=== PATIENT | female | born 1945 | race American Indian/Alaskan Native ===

== ENCOUNTER 2020-04-14 16:41 | Observation (INO) | payer MEDICARE ==
--- NOTE | 2020-04-14 17:16 | Emergency Department Report ---
Blank Doc - Documentation Documentation: 74-year-old female that presents with chest pain and SOB. This initial assessment/diagnostic orders/clinical plan/treatment(s) is/are subject to change based on patient's health status, clinical progression and re- assessment by fellow clinical providers in the ED. Further treatment and workup at subsequent clinical providers discretion. Patient/guardians urged not to elope from the ED as their condition may be serious if not clinically assessed and managed. Initial orders include: 1- Patient sent to MAIN ED for further evaluation and treatment 2- cardiac workup
--- NOTE | 2020-04-14 17:50 | XRay Report ---
CHEST PA AND LATERAL VIEWS INDICATION: Chest Pain. COMPARISON: None. FINDINGS: Support devices: None. Heart: Within normal limits. Lungs/Pleura: No acute pulmonary or pleural findings. IMPRESSION: 1. No acute findings. Signer Name: Kevin Horowitz MD Signed: 04/14/2020 5:46 PM Workstation Name: [id number]
[2020-04-14 18:09] LABS: Basophils % (Auto) 0.6 % (0.0-1.8); Eosinophils # (Auto) 0.2 K/mm3 (0.0-0.4); Eosinophils % (Auto) 2.6 % (0.0-4.3); Hematocrit 31.9 % (30.3-42.9); Hemoglobin 11.2 gm/dl (10.1-14.3); Lymphocytes # (Auto) 3.7 K/mm3 (1.2-5.4); Lymphocytes % (Auto) 47.7 % (13.4-35.0); Mean Corpuscular HGB Conc 35 % (30-34); Mean Corpuscular Volume 88 fl (79-97); Monocytes # (Auto) 0.5 K/mm3 (0.0-0.8); Monocytes % (Auto) 6.6 % (0.0-7.3); Platelet Count 239 K/mm3 (140-440); Red Blood Count 3.61 M/mm3 (3.65-5.03); Red Cell Distribution Width 14.7 % (13.2-15.2)
[2020-04-14 18:17] LABS: INR 0.94 (0.87-1.13)
[2020-04-14 18:18] LABS: Alanine Aminotransferase 14 units/L (7-56); Albumin 4.1 g/dL (3.9-5); BUN/Creatinine Ratio 9; Blood Urea Nitrogen 19 mg/dL (7-17); Calcium 9.1 mg/dL (8.4-10.2); Hemolysis Index 5; Partial Thromboplastin Time 27.9 Sec. (24.2-36.6)
--- NOTE | 2020-04-14 22:34 | Emergency Department Report ---
ED Chest Pain HPI - General Chief Complaint: Chest Pain Stated Complaint: CHEST PAINS PUI?: No Time Seen by Provider: 04/14/20 17:15 Source: patient Mode of arrival: Ambulatory Limitations: No Limitations - History of Present Illness Initial Comments: Patient is a 74-year-old female that presents emergency room with complaints of bilateral chest pain. Patient states that her chest pain started a week ago. Patient states she was seen by her primary care 1 week ago and was given a steroid pack and a Z-Hever. Patient states her symptoms improved with the steroids and Z-Hever.. Patient states that the symptoms returned yesterday. Patient also complains of shortness of breath and cough. Patient states the cough is improving. Patient states the chest pain and shortness of breath are worsening. Patient denies fever and chills. Patient denies diarrhea. Patient denies nausea vomiting. Patient denies loss of smell. Patient states her cough is a dry cough. .Patient states she is visiting from [place]. 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 Patient has history of diabetes and hypertension. Patient is compliant with her medications. Patient denies recent travel. Patient denies recent international travel. Mamie ent denies exposure to the novel coronavirus. Patient denies sick contacts. Patient denies fever and chills. Patient denies loss of smell. Patient denies diarrhea. Patient denies coming in contact with anybody with symptoms of the novel coronavirus. MD Complaint: chest pain -: Sudden, week(s) Onset: during rest Pain Location: left chest, right chest Pain Radiation: none Severity: moderate Severity scale (0 -10): 6 Quality: sharp Consistency: intermittent Improves With: rest Worsens With: exertion, inspiration, movement re: dyspnea. denies: nausea, vomting, diaphoresis, sense of impending doom Other Symptoms: cough. denies: fever, syncope, rash, acid taste in mouth, leg swelling, palpitations, burping Treatments Prior to Arrival: other Aspirin use within the Past 7 Days: (1) Yes - Related Data On Oral Contraceptives: No Home Medications Medication Instructions Recorded Confirmed Last Taken Doxazosin Mesylate [Cardura] 2 mg PO DAILY 04/15/20 04/15/20 Unknown Dulaglutide [Trulicity] SQ 04/15/20 Unknown Flecainide Acetate 50 mg PO BID 04/15/20 04/15/20 Unknown Metoprolol [Lopressor] 100 mg PO BID 04/15/20 04/15/20 Unknown NIFEdipine [Nifedipine ER] 60 mg PO QDAY 04/15/20 04/15/20 Unknown Nitroglycerin [Nitrostat] 0.4 mg SL 04/15/20 Unknown Omeprazole 40 mg PO 04/15/20 Unknown Ondansetron [Zuplenz] 8 mg PO 04/15/20 Unknown Rosuvastatin Calcium [Crestor] 10 mg PO QDAY 04/15/20 04/15/20 Unknown Allergies Allergy/AdvReac Type Severity Reaction Status Date / Time No Known Allergies Allergy Verified 04/14/20 23:01 Heart Score - HEART Score History: Moderately suspicious EKG: Non-specific Age: > 65 Risk factors: > 3 risk factors or hx of atherosclerotic disease Troponin: < normal limit HEART Score: 6 ED Review of Systems ROS: Stated complaint: CHEST PAINS Other details as noted in HPI Constitutional: denies: chills, fever Eyes: denies: eye pain, eye discharge, vision change ENT: denies: ear pain, throat pain Respiratory: cough, shortness of breath. denies: wheezing Cardiovascular: chest pain. denies: palpitations Endocrine: no symptoms reported Gastrointestinal: denies: abdominal pain, nausea, diarrhea Genitourinary: denies: urgency, dysuria, discharge Musculoskeletal: denies: back pain, joint swelling, arthralgia Skin: denies: rash, lesions Neurological: denies: headache, weakness, paresthesias Psychiatric: denies: anxiety, depression Hematological/Lymphatic: denies: easy bleeding, easy bruising ED Past Medical Hx - Past Medical History Previous Medical History?: Yes Hx Hypertension: Yes Hx Diabetes: Yes Hx Renal Disease: Yes (ckd -2) Additional medical history: Coronary artery disease. - Surgical History Past Surgical History?: Yes Additional Surgical History: eye, back - Family History Family history: no significant - Social History Smoking Status: Never Smoker Substance Use Type: None - Medications Home Medications: Home Medications Medication Instructions Recorded Confirmed Last Taken Type Doxazosin Mesylate [Cardura] 2 mg PO DAILY 04/15/20 04/15/20 Unknown History Dulaglutide [Trulicity] SQ 04/15/20 Unknown History Flecainide Acetate 50 mg PO BID 04/15/20 04/15/20 Unknown History Metoprolol [Lopressor] 100 mg PO BID 04/15/20 04/15/20 Unknown History NIFEdipine [Nifedipine ER] 60 mg PO QDAY 04/15/20 04/15/20 Unknown History Nitroglycerin [Nitrostat] 0.4 mg SL 04/15/20 Unknown History Omeprazole 40 mg PO 04/15/20 Unknown History Ondansetron [Zuplenz] 8 mg PO 04/15/20 Unknown History Rosuvastatin Calcium [Crestor] 10 mg PO QDAY 04/15/20 04/15/20 Unknown History ED Physical Exam - General Limitations: No Limitations General appearance: alert, in no apparent distress - Head Head exam: Present: atraumatic, normocephalic - Eye Eye exam: Present: normal appearance - ENT ENT exam: Present: mucous membranes moist - Neck Neck exam: Present: normal inspection - Respiratory Respiratory exam: Present: normal lung sounds bilaterally. Absent: respiratory distress, wheezes, rales - Cardiovascular Cardiovascular Exam: Present: regular rate, normal rhythm. Absent: systolic murmur, diastolic murmur, rubs, gallop - GI/Abdominal GI/Abdominal exam: Present: soft, normal bowel sounds - Extremities Exam Extremities exam: Present: normal inspection - Back Exam Back exam: Present: normal inspection - Neurological Exam Neurological exam: Present: alert, oriented X3 - Psychiatric Psychiatric exam: Present: normal affect, normal mood - Skin Skin exam: Present: warm, dry, intact, normal color. Absent: rash ED Course Vital Signs 04/14/20 04/14/20 04/14/20 17:14 22:32 22:46 Temperature 98.2 F Pulse Rate 65 64 60 Respiratory 20 19 15 Rate Blood Pressure 170/76 174/86 Blood Pressure [left arm] O2 Sat by Pulse 97 99 Oximetry 04/14/20 04/14/20 04/14/20 23:00 23:16 23:30 Temperature Pulse Rate 60 62 61 Respiratory 17 17 20 Rate Blood Pressure 174/86 Blood Pressure [left arm] O2 Sat by Pulse 97 98 99 Oximetry 04/14/20 04/15/20 23:46 00:34 Temperature Pulse Rate 62 62 Respiratory 19 Rate Blood Pressure 196/79 164/68 Blood Pressure 164/88 [left arm] O2 Sat by Pulse 98 Oximetry - Reevaluation(s) Reevaluation #1: I discussed all results with patient. I discussed plan of care with patient. Patient agrees with plan of care and admission. Patient to be admitted to the hospitalist service. 04/14/20 23:14 - Consultations Consultation #1: Hospitalist consulted for admission. Hospitalist to admit patient. Bridge orders placed. 04/14/20 23:14 VALE score - Vale Score Age > 65: (1) Yes Aspirin use within the Past 7 Days: (1) Yes 3 or more CAD Risk Factors: (1) Yes 2 or more Angina events in past 24 hrs: (1) Yes Known CAD with more than 50% Stenosis: (0) No Elevated Cardiac Markers: (0) No ST Deviation Greater than 0.5mm: (0) No VALE Score: 4 ED Medical Decision Making - Lab Data Result diagrams: 04/14/20 17:24 04/14/20 17:24 - EKG Data -: EKG Interpreted by Me EKG shows normal: sinus rhythm, axis, intervals, QRS complexes, ST-T waves Rate: normal - Radiology Data Radiology results: report reviewed interpreted by me: Chest x-ray: No pneumonia, no pneumothorax, no foreign body, no osseous findings, no acute findings CHEST PA AND LATERAL VIEWS INDICATION: Chest Pain. COMPARISON: None. FINDINGS: Support devices: None. Heart: Within normal limits. Lungs/Pleura: No acute pulmonary or pleural findings. IMPRESSION: 1. No acute findings. - Medical Decision Making Patient is a 74-year-old female that presents emergency room with complaints of chest pain. Patient chest pain is bilateral. Patient had labs done which were essentially unremarkable except for renal insufficiency. Patient has elevated heart score. Patient has elevated VALE score. Patient has coronary risk factors. Patient admitted to the hospitalist service for further evaluation and treatment and rule out ACS. Patient's EKG does not show a STEMI. Patient's chest x-ray is negative. - Differential Diagnosis ACS, chest pain, pleurisy, pneumonia, bronchitis, Critical Care Time: Yes Critical care time in (mins) excluding proc time.: 35 Critical care attestation.: If time is entered above; I have spent that time in minutes in the direct care of this critically ill patient, excluding procedure time. Critical Care Time: 35 minutes ED Disposition Clinical Impression: SOB (shortness of breath), Renal insufficiency, Hypokalemia Chest pain Qualifiers: Chest pain type: unspecified Qualified Code(s): R07.9 - Chest pain, unspecified CAD (coronary artery disease) Qualifiers: Coronary Disease-Associated Artery/Lesion type: [place] artery [place] vs. transplanted heart: [place] heart Associated angina: angina presence unspecified Qualified Code(s): I25.10 - Atherosclerotic heart disease of [place] coronary artery without angina pectoris Disposition: 09 OP ADMIT IP TO THIS HOSP Is pt being admited?: Yes Does the pt Need Aspirin: No Condition: Critical Time of Disposition: 23:14
[2020-04-14] MEDS ORDERED: ASPIRIN 325 MG TAB PO ONE (23:12)
[2020-04-14] MEDS: POTASSIUM CHLORIDE 10 MEQ 10 MEQ/100 ML BAG IV SCH (23:30)
[2020-04-14] MEDS ORDERED: SODIUM CHLORIDE 0.9% 1000 ML 1,000 ML ONE (23:45)
[2020-04-15] MEDS ORDERED: ASPIRIN 325 MG TAB ONE (00:14)
[2020-04-15] MEDS ORDERED: DEXTROSE 50% IN WATER (25GM) 50 ML SYRINGE IV PRN (00:20)
[2020-04-15] MEDS ORDERED: ACETAMINOPHEN 325 MG TAB PO PRN (00:20)
[2020-04-15] MEDS ORDERED: MORPHINE 4 MG/1 ML INJ IV PRN (00:20)
[2020-04-15] MEDS ORDERED: NITROGLYCERIN 0.4 MG TAB SUBL SL PRN (00:20)
[2020-04-15] MEDS ORDERED: MORPHINE 2 MG/1 ML INJ ONE (00:27)
[2020-04-15] MEDS ORDERED: ONDANSETRON 4 MG/2 ML INJ ONE (00:27)
--- NOTE | 2020-04-15 00:30 | History and Physical Report ---
History of Present Illness Date of examination: 04/14/20 Date of admission: 04/14/20 23:16 Chief complaint: Chest Pain History of present illness: 74-year-old -Citizen Of [place] female with known history of diabetes mellitus, hypertension and chronic kidney disease presenting to the emergency room today complaining of chest pain. Chest pain is said to have started about a week ago and she feels pain across the entire chest. Patient indicates that she was seen by her primary care physician about a week ago and she was given a Z-Hever and some steroids with some improvement. Patient's only visits to family here in [place] from [place] as she started having the symptoms again overnight. She denies any fever or chills, no nausea vomiting, no diarrhea, no abdominal pain. She has had some mild cough which is nonproductive. There is no known relieving or exacerbating factor for her chest pain. She denies any sick contacts and no contact with anyone with COVID-19. Also indicates that she is scheduled to follow-up with a cvir tech in [place] for possible coronary angiogram and possible stent placement for suspected coronary artery disease. Work-up in the emergency room today did not show any significant finding. Patient being admitted for further work-up of her chest pain. Past History Past Medical History: CAD, diabetes, hypertension Past Surgical History: Other (Eye and Back Surgery) Social history: no significant social history Family history: no significant family history Medications and Allergies Allergies Allergy/AdvReac Type Severity Reaction Status Date / Time No Known Allergies Allergy Verified 04/14/20 23:01 Home Medications Medication Instructions Recorded Confirmed Last Taken Type Doxazosin Mesylate [Cardura] 2 mg PO DAILY 04/15/20 04/15/20 Unknown History Dulaglutide [Trulicity] SQ 04/15/20 Unknown History Flecainide Acetate 50 mg PO BID 04/15/20 04/15/20 Unknown History Metoprolol [Lopressor] 100 mg PO BID 04/15/20 04/15/20 Unknown History NIFEdipine [Nifedipine ER] 60 mg PO QDAY 04/15/20 04/15/20 Unknown History Nitroglycerin [Nitrostat] 0.4 mg SL 04/15/20 Unknown History Omeprazole 40 mg PO 04/15/20 Unknown History Ondansetron [Zuplenz] 8 mg PO 04/15/20 Unknown History Rosuvastatin Calcium [Crestor] 10 mg PO QDAY 04/15/20 04/15/20 Unknown History Active Meds: Active Medications Acetaminophen (Tylenol) 650 mg PO Q6H PRN PRN Reason: Pain, Mild (1-3) Aspirin (Ecotrin) 325 mg PO QDAY [facility] Dextrose (D50w (25gm) Syringe) 50 ml IV Q30MIN PRN; Protocol PRN Reason: Hypoglycemia Potassium Chloride (Kcl 10meq/100ml) 10 meq in 100 mls @ 100 mls/hr IV Q1H [facility] Stop: 04/15/20 01:59 Sodium Chloride (Sodium Chloride Flush Syringe 10 Ml) 10 ml IV PRN PRN PRN Reason: LINE FLUSH Review of Systems Constitutional: no fever, no chills Ears, nose, mouth and throat: no nasal congestion, no sore throat Cardiovascular: chest pain, no palpitations Respiratory: no cough, no shortness of breath Gastrointestinal: no abdominal pain, no nausea, no vomiting, no diarrhea Genitourinary Female: no pelvic pain, no flank pain, no dysuria, no hematuria Musculoskeletal: no neck pain, no low back pain Integumentary: no rash, no pruritis Neurological: no headaches, no confusion Psychiatric: no anxiety, no depression Exam - Constitutional Vitals: Temp Pulse Resp BP Pulse Ox 98.2 F 65 20 170/76 97 04/14/20 17:14 04/14/20 17:14 04/14/20 17:14 04/14/20 17:14 04/14/20 17:14 General appearance: Present: no acute distress, well-nourished - EENT Eyes: Present: PERRL, EOM intact. Absent: scleral icterus ENT: hearing intact, clear oral mucosa, dentition normal - Neck Neck: Present: supple, normal ROM - Respiratory Respiratory effort: normal Respiratory: bilateral: CTA - Cardiovascular Rhythm: regular Heart Sounds: Present: S1 & S2. Absent: gallop, systolic murmur, diastolic murmur, rub - Extremities Extremities: no ischemia, pulses intact, pulses symmetrical, No edema, Full ROM Peripheral Pulses: within normal limits - Abdominal General gastrointestinal: Present: soft, non-tender, non-distended, normal bowel sounds. Absent: mass - Integumentary Integumentary: Present: clear, warm, dry. Absent: rash - Musculoskeletal Musculoskeletal: strength equal bilaterally - Psychiatric Psychiatric: appropriate mood/affect, intact judgment & insight, memory intact, cooperative - Neurologic Neurologic: CNII-XII intact, no focal deficits, moves all extremities HEART Score - HEART Score History: Slightly suspicious EKG: Non-specific Age: > 65 Risk factors: > 3 risk factors or hx of atherosclerotic disease Troponin: Troponin T < 0.010 ng/mL (0.00-0.029) 04/14/20 20:12 Troponin: < normal limit HEART Score: 5 Results - Labs CBC & Chem 7: 04/14/20 17:24 04/14/20 17:24 Labs: Abnormal lab results 04/14/20 04/14/20 Range/Units 17:24 17:24 RBC 3.61 L (3.65-5.03) M/mm3 MCHC 35 H (30-34) % Lymph % (Auto) 47.7 H (13.4-35.0) % Potassium 3.1 L (3.6-5.0) mmol/L BUN 19 H (7-17) mg/dL Creatinine 2.2 H (0.6-1.2) mg/dL Glucose 125 H (65-100) mg/dL Assessment and Plan - Patient Problems (1) Chest pain Current Visit: Yes Status: Acute Qualifiers: Chest pain type: unspecified Qualified Code(s): R07.9 - Chest pain, unspecified Plan to address problem: Patient admitted to telemetry. Will check serial cardiac enzymes.. Patient placed on aspirin, sublingual nitroglycerin and IV morphine as needed for chest pain. We will monitor EKG. We will place consult to cardiology for further evaluation and recommendation. (2) Hypokalemia Current Visit: Yes Status: Acute Plan to address problem: We will replete potassium and monitor chemistry. (3) Renal insufficiency Current Visit: Yes Status: Acute Plan to address problem: Possibly chronic. Will monitor BUN and creatinine. (4) DVT prophylaxis Current Visit: Yes Status: Acute Plan to address problem: Patient placed on subcutaneous heparin. (5) Full code status Current Visit: Yes Status: Acute
[2020-04-15] MEDS ORDERED: SODIUM CHLORIDE 0.9% 1000 ML 1,000 ML IV SCH (02:15)
[2020-04-15] MEDS ORDERED: diphenhydrAMINE 50 MG/ML VIAL IV ONE (02:33)
[2020-04-15] MEDS: POTASSIUM CHLORIDE 10 MEQ 10 MEQ/100 ML BAG IV SCH ×2 (03:56→04:42)
[2020-04-15] MEDS ORDERED: HEPARIN 5,000 UNIT/1 ML VIAL SUB-Q SCH (06:00)
[2020-04-15] MEDS ORDERED: POTASSIUM CHLORIDE 10 MEQ 10 MEQ/100 ML BAG IV ONE (06:48)
[2020-04-15] MEDS ORDERED: POTASSIUM CHLORIDE ER 20 MEQ TAB PO ONE (06:48)
[2020-04-15] MEDS ORDERED: REGADENOSON 0.4 MG/5 ML INJ IV ONE (07:19)
[2020-04-15 07:32] LABS: Basophils # (Auto) 0.1 K/mm3 (0.0-0.1); Basophils % (Auto) 0.7 % (0.0-1.8); Eosinophils # (Auto) 0.2 K/mm3 (0.0-0.4); Eosinophils % (Auto) 2.6 % (0.0-4.3); Hematocrit 33.3 % (30.3-42.9); Hemoglobin 11.2 gm/dl (10.1-14.3); Lymphocytes # (Auto) 3.8 K/mm3 (1.2-5.4); Lymphocytes % (Auto) 46.9 % (13.4-35.0); Mean Corpuscular HGB Conc 34 % (30-34); Mean Corpuscular Volume 89 fl (79-97); Monocytes # (Auto) 0.6 K/mm3 (0.0-0.8); Monocytes % (Auto) 7.2 % (0.0-7.3); Platelet Count 233 K/mm3 (140-440); Red Blood Count 3.74 M/mm3 (3.65-5.03); Red Cell Distribution Width 14.7 % (13.2-15.2)
[2020-04-15 07:57] LABS: Calcium 9.1 mg/dL (8.4-10.2); Chol/HDL Ratio 2.16 %
[2020-04-15 07:58] VITALS: BP 137/65
[2020-04-15] MEDS: INSULIN LISPRO 100 UNIT/ML VIAL 3 mL SUB-Q SCH ×2 (08:43→11:32)
--- NOTE | 2020-04-15 11:19 | Consultation ---
History of Present Illness Consult date: 04/15/20 Requesting physician: PRIMO THOMAS Consult reason: chest pain History of present illness: The pt is a 74-year-old female with a past medical history of HTN, DM, CKD stage III. She is previously unknown to our practice, she is from [place] and is visiting family in [place] for Thanksgiving. She presented with c/o chest pain. She states that she has been experiencing intermittent chest pain for the past several months, with worsening of chest pain 3 weeks ago. Her PCP prescribed her a Z-Hever and prednisone for her chest pain which did alleviate the pain. Yesterday, she was standing in the kitchen cooking a mean when the chest pain returned. She describes her chest pain as a constant midsternal stabbing pain which is aggravated with deep inspiration. The pain was associated with some diaphoresis and SOB. She denies any palpitations, n/v, dizziness or syncope. Of note, records from pt's guidance and control system engineer in [place] obtained - pt underwent tte 07/2019 which showed EF 60%, mild LVH, mild MR, mild TR. Treadmill MPI stress test done 07/2019 was negative. Per guidance and control system engineer notes, pt has h/o paroxysmal AFib, normal coronary arteries via cardiac cath in 2011, HTN, CKD, HLP, mild left carotid stenosis, loop recorder in situ. Pt has been scheduled for coronary angiography on 05/11/2020. Past History Past Medical History: diabetes, hypertension, other (as per HPI) Past Surgical History: Other (Eye and Back Surgery) Social history: no significant social history Family history: no significant family history Medications and Allergies Allergies Allergy/AdvReac Type Severity Reaction Status Date / Time No Known Allergies Allergy Verified 04/14/20 23:01 Home Medications Medication Instructions Recorded Confirmed Last Taken Type Aspirin EC [Ecotrin] 325 mg PO QDAY #30 tablet 04/15/20 Unknown Rx Doxazosin Mesylate [Cardura] 2 mg PO DAILY #30 04/15/20 04/15/20 Unknown Rx Dulaglutide [Trulicity] SQ 04/15/20 Unknown History Flecainide Acetate 50 mg PO BID 04/15/20 04/15/20 Unknown History Metoprolol [Lopressor TAB] 100 mg PO BID #60 04/15/20 04/15/20 Unknown Rx NIFEdipine [Nifedipine ER] 60 mg PO QDAY 04/15/20 04/15/20 Unknown History Nitroglycerin [Nitrostat] 0.4 mg SL 04/15/20 Unknown History Omeprazole 40 mg PO 04/15/20 Unknown History Ondansetron [Zuplenz] 8 mg PO 04/15/20 Unknown History Rosuvastatin Calcium [Crestor] 10 mg PO QDAY 04/15/20 04/15/20 Unknown History Active Meds: Active Medications Acetaminophen (Tylenol) 650 mg PO Q6H PRN PRN Reason: Pain, Mild (1-3) Last Admin: 04/15/20 02:29 Dose: 650 mg Documented by: Aspirin (Ecotrin) 325 mg PO QDAY [facility] Dextrose (D50w (25gm) Syringe) 50 ml IV Q30MIN PRN; Protocol PRN Reason: Hypoglycemia Heparin Sodium (Porcine) (Heparin) 5,000 unit SUB-Q Q8HR [facility] Last Admin: 04/15/20 06:08 Dose: 5,000 unit Documented by: Sodium Chloride (Nacl 0.9% 1000 Ml) 1,000 mls @ 75 mls/hr IV DIRECT [facility] Insulin Human Lispro (Humalog) 0 unit SUB-Q ACHS [facility]; Protocol Last Admin: 04/15/20 08:43 Dose: Not Given Documented by: Morphine Sulfate (Morphine) 2 mg IV Q5MIN PRN PRN Reason: Chest Pain Nitroglycerin (Nitrostat) 0.4 mg SL Q5M PRN PRN Reason: Chest Pain Sodium Chloride (Sodium Chloride Flush Syringe 10 Ml) 10 ml IV PRN PRN PRN Reason: LINE FLUSH Review of Systems Constitutional: no weight loss, no weight gain, no fever, no chills Ears, nose, mouth and throat: no ear pain, no nose pain, no sinus pressure, no sinus pain Cardiovascular: chest pain, shortness of breath, no orthopnea, no palpitations, no rapid/irregular heart beat, no edema, no syncope, no lightheadedness, no high blood pressure, no leg edema Respiratory: shortness of breath, pain on inspiration, no cough, no congestion, no wheezing Gastrointestinal: no abdominal pain, no nausea, no vomiting, no diarrhea, no constipation, no change in bowel habits Genitourinary Female: no pelvic pain, no flank pain, no dysuria, no urinary frequency, no urgency Musculoskeletal: no neck stiffness, no neck pain, no shooting arm pain, no arm numbness/tingling, no low back pain Integumentary: no rash, no pruritis, no redness, no sores, no wounds Neurological: no head injury, no paralysis, no weakness, no parathesias, no numbness, no tingling, no seizures, no syncope Endocrine: no cold intolerance, no heat intolerance Hematologic/Lymphatic: no easy bruising, no easy bleeding Allergic/Immunologic: no urticaria Physical Examination Vital Signs Temp Pulse Resp BP Pulse Ox 98.2 F 65 20 170/76 97 04/14/20 17:14 04/14/20 17:14 04/14/20 17:14 04/14/20 17:14 04/14/20 17:14 General appearance: no acute distress HEENT: Positive: PERRL, Normocephaly, Mucus Membranes Moist Neck: Positive: neck supple, trachea midline Cardiac: Positive: Reg Rate and Rhythm, S1/S2 Lungs: Positive: Decreased Breath Sounds Neuro: Positive: Grossly Intact Abdomen: Negative: Tender Skin: Negative: Rash Musculoskeletal: No Pain Extremities: Absent: edema Results 04/15/20 06:50 04/15/20 06:50 Cardiac Enzymes 04/14/20 Range/Units 17:24 AST 24 (5-40) units/L Coagulation 04/14/20 Range/Units 17:24 PT 12.5 (12.2-14.9) Sec. INR 0.94 (0.87-1.13) APTT 27.9 (24.2-36.6) Sec. Lipids 04/15/20 Range/Units 06:50 Triglycerides 69 (2-149) mg/dL Cholesterol 128 (50-199) mg/dL HDL Cholesterol 59 (40-59) mg/dL Cholesterol/HDL Ratio 2.16 % CBC 04/14/20 04/15/20 Range/Units 17:24 06:50 WBC 7.8 8.1 (4.5-11.0) K/mm3 RBC 3.61 L 3.74 (3.65-5.03) M/mm3 Hgb 11.2 11.2 (10.1-14.3) gm/dl Hct 31.9 33.3 (30.3-42.9) % Plt Count 239 233 (140-440) K/mm3 Lymph # (Auto) 3.7 3.8 (1.2-5.4) K/mm3 [place] # (Auto) 0.5 0.6 (0.0-0.8) K/mm3 Eos # (Auto) 0.2 0.2 (0.0-0.4) K/mm3 Baso # (Auto) 0.0 0.1 (0.0-0.1) K/mm3 Comprehensive Metabolic Panel 04/14/20 04/15/20 Range/Units 17:24 06:50 Sodium 140 141 (137-145) mmol/L Potassium 3.1 L 3.2 L (3.6-5.0) mmol/L Chloride 101.1 104.2 (98-107) mmol/L Carbon Dioxide 25 27 (22-30) mmol/L BUN 19 H 13 (7-17) mg/dL Creatinine 2.2 H 1.5 H (0.6-1.2) mg/dL Glucose 125 H 105 H (65-100) mg/dL Calcium 9.1 9.1 (8.4-10.2) mg/dL AST 24 (5-40) units/L ALT 14 (7-56) units/L Alkaline Phosphatase 62 (35-129) units/L Total Protein 7.4 (6.3-8.2) g/dL Albumin 4.1 (3.9-5) g/dL - Imaging and Cardiology EKG: report reviewed, image reviewed EKG interpretations - Telemetry EKG Rhythm: Sinus Rhythm - EKG Sinus rhythms and dysrhythmias: sinus rhythm Assessment and Plan Pt presented with chest pain, AMI r/o, chest pain currently resolved. Records from pt's guidance and control system engineer in [place] obtained - pt underwent tte 07/2019 which showed EF 60%, mild LVH, mild MR, mild TR. Treadmill MPI stress test done 07/2019 was negative. Per guidance and control system engineer notes, pt has h/o paroxysmal AFib, normal coronary arteries via cardiac cath in 2011, HTN, CKD, HLP, mild left carotid stenosis, loop recorder in situ. Pt has been scheduled for coronary angiography on 05/11/2020. Coronary angiography recommended here for definitive diagnosis. Indications, potential risks and benefits of LHC reviewed with pt and she has ultimately declined LHC. She states that she wishes to return to [place] and have this test performed with her primary guidance and control system engineer. Currently stable cardiac status. Pt may discharge from cardiology standpoint on home cardiac regimen. Recommend pt follow up with her primary guidance and control system engineer in [place] within 1-2 weeks. Pt verbalizes understanding. The patient has been seen in conjunction with Dr. Garcia who agrees with the assessment and plan of care. - Patient Problems (1) Chest pain Current Visit: Yes Status: Acute Qualifiers: Chest pain type: unspecified Qualified Code(s): R07.9 - Chest pain, unspecified (2) HTN (hypertension) Current Visit: Yes Status: Chronic (3) Diabetes Current Visit: Yes Status: Chronic (4) CKD (chronic kidney disease) Current Visit: Yes Status: Chronic (5) Hypokalemia Current Visit: Yes Status: Acute
--- NOTE | 2020-04-15 11:27 | Discharge Summary ---
Providers - Providers Date of Admission: 04/14/20 23:16 Date of discharge: 04/15/20 Attending physician: NATALIIA POLANCO 04/15/20 Consult to Cardiac Rehabilitation [CONS] Routine Reason For Exam: Phase I 04/15/20 00:20 Consult to Cardiology [CONS] Routine Consulting Provider: MAXWELL OTOOLE Reason For Exam: Chest Pain Consult to Dietitian/Nutrition [CONS] Routine Physician Instructions: Reason For Exam: Reason for Consult: Diet education Primary care physician: PHYS THERAPIST Hospitalization Condition: Critical Pertinent studies: CXR: No infiltrates Hospital course: 74-year-old -[place] female with known history of diabetes mellitus, hypertension and chronic kidney disease presenting to the emergency room complaining of chest pain. Also indicates that she is scheduled to follow-up with a recyclable materials distributor in [place] for possible coronary angiogram and possible stent placement for suspected coronary artery disease. Work-up in the emergency room today did not show any significant finding. Patient was admitted for further work-up of her chest pain. Records from pt's recyclable materials distributor in [place] obtained - pt underwent tte 07/2019 which showed EF 60%, mild LVH, mild MR, mild TR. Treadmill MPI stress test done 07/2019 was negative. Per recyclable materials distributor notes, pt has h/o paroxysmal AFib, normal coronary arteries via cardiac cath in 2011, HTN, CKD, HLP, mild left carotid stenosis, loop recorder in situ. Patient has been scheduled for coronary angiography on 05/11/2020. Coronary angiography recommended here for definitive diagnosis. Indications, potential risks and benefits of LHC reviewed with pt and she has ultimately declined LHC. She states that she wishes to return to [facility] and have this test performed with her primary recyclable materials distributor. Cardiology cleared the patient for discharge. Recommend patient to follow up with her primary recyclable materials distributor in [place] within 1-2 weeks. Pt verbalizes understanding. Discharge dianosis: (1) Chest pain, likely GERD VS CAD - LHC recommended but patient refused -Patient will do outpatient follow-up with her recyclable materials distributor at [place] -Discharged home with PPI (2) Hypokalemia, repleted potassium (3) CRISTIANO on CKD, likely vasomotor nephropathy, improved with IV fluid (4) hypertension, stable (5) history of paroxysmal atrial fib, rate controlled Time spent for discharge: 34 minutes Core Measure Documentation - Palliative Care Palliative Care/ Comfort Measures: Not Applicable - Core Measures Any of the following diagnoses?: none Exam - Physical Exam Narrative exam: General appearance: Present: no acute distress, well-nourished - EENT Eyes: Present: PERRL, EOM intact. Absent: scleral icterus ENT: hearing intact, clear oral mucosa, dentition normal - Neck Neck: Present: supple, normal ROM - Respiratory Respiratory effort: normal Respiratory: bilateral: CTA - Cardiovascular Rhythm: regular Heart Sounds: Present: S1 & S2. Absent: gallop, systolic murmur, diastolic murmur, rub - Extremities Extremities: no ischemia, pulses intact, pulses symmetrical, No edema, Full ROM Peripheral Pulses: within normal limits - Abdominal General gastrointestinal: Present: soft, non-tender, non-distended, normal bowel sounds. Absent: mass - Integumentary Integumentary: Present: clear, warm, dry. Absent: rash - Musculoskeletal Musculoskeletal: strength equal bilaterally - Psychiatric Psychiatric: appropriate mood/affect, intact judgment & insight, memory intact, cooperative - Neurologic Neurologic: CNII-XII intact, no focal deficits, moves all extremities - Constitutional Vitals: Temp Pulse Resp BP Pulse Ox 98.2 F 59 L 20 137/65 93 04/15/20 07:33 04/15/20 07:33 04/15/20 07:33 04/15/20 07:33 04/15/20 07:33 Plan Activity: advance as tolerated Weight Bearing Status: Non-Weight Bearing Diet: low fat, low salt Additional Instructions: Follow-up with your recyclable materials distributor at [place] for outpatient coronary angiogram. Follow up with: PRIMARY CARE, [Primary Care Provider] - 3-5 Days Prescriptions: Aspirin EC [Ecotrin] 325 mg PO QDAY #30 tablet
[2020-04-16] MEDS ORDERED: ASPIRIN EC 325 MG TAB PO SCH (10:00)
== END 2020-04-15 13:20 | disposition home or self-care (01) ==
LOC: ED 16:41 → 4A 23:16
PROVIDERS: ADMIT Internal Medicine Geriatric Medicine; ATTEND Internal Medicine
DX: R07.89 Other chest pain (principal); R06.02 Shortness of breath; I25.10 Atherosclerotic heart disease of native coronary artery without angina pectoris; N17.9 Acute kidney failure, unspecified; N28.9 Disorder of kidney and ureter, unspecified; I12.9 Hypertensive chronic kidney disease with stage 1 through stage 4 chronic kidney disease, or unspecified chronic kidney disease; N18.2 Chronic kidney disease, stage 2 (mild); E11.22 Type 2 diabetes mellitus with diabetic chronic kidney disease; I48.0 Paroxysmal atrial fibrillation; E87.6 Hypokalemia; Z98.890 Other specified postprocedural states; Z79.82 Long term (current) use of aspirin; Z79.4 Long term (current) use of insulin
CPT/HCPCS: 36415; 71046; 80048; 80053; 80061; 82962; 83036; 83880; 84484; 85025; 85610; 85730; 93005; 96365; 96366; 96372; 96375; 99291; G0378; J1200; J1644; J2270; J2405; J3480; J7030